=== PATIENT | male | born 1995 | race Caucasian/White ===

== ENCOUNTER 2017-01-04 17:35 | Inpatient (IN) | payer BC ==
[~2017-01-04] VITALS: Ht 182.9 cm; Wt 68.7 kg
[2017-01-04 17:42] VITALS: BP 101/72
[2017-01-04 18:09] LABS: BASO # 0.1 10*3/uL (0.0-0.1); BASO % 0.4 % (0.0-1.0); EOS # 0.3 10*3/uL (0.0-0.4); EOS % 1.7 % (1.0-4.0); HEMATOCRIT 50.2 % (42.0-52.0); HEMOGLOBIN 16.8 g/dl (14.0-18.0); LYMPH # 1.2 10*3/uL (1.3-4.4); LYMPH % 7.1 % (27.0-41.0); MEAN CELL VOLUME 82.4 fl (80.0-94.0); MEAN CORPUSCULAR HGB 27.6 pg (27.0-31.0); MEAN CORPUSCULAR HGB CONC 33.5 g/dl (33.0-37.0); MEAN PLATELET VOLUME 9.6 fl (9.6-12.3); MONO # 1.1 10*3/uL (0.1-1.0); MONO % 6.6 % (3.0-9.0); NEUT # 14.5 10*3/uL (2.3-7.9); NEUT % 83.9 % (47.0-73.0); PLATELET COUNT AUTOMATED 443 10*3/uL (130-400); RED BLOOD COUNT 6.09 10*6/uL (4.50-5.90); RED CELL DISTRI WIDTH 13.2 % (0-14.5); WHITE BLOOD COUNT 17.2 10*3/uL (4.8-10.8)
[2017-01-04 18:24] LABS: ALBUMIN 4.1 gm/dl (3.1-4.5); ALKALINE PHOSPHATASE 99 U/L (45-117); BUN 12 mg/dl (7-24); CHLORIDE 100 mmol/L (98-107); CREATININE 0.94 mg/dL (0.70-1.30); LIPASE 107 U/L (73-393); POTASSIUM 3.9 mmol/L (3.5-5.1); SGOT/AST 22 IU/L (3-35); SGPT/ALT 21 U/L (12-78); SODIUM 137 mmol/L (136-145); TOTAL PROTEIN 8.5 gm/dL (6.4-8.2)
[2017-01-04 18:24] LABS: BILIRUBIN 1+ (NEGATIVE); BLOOD NEGATIVE (NEGATIVE); CLARITY SL CLOUDY (CLEAR); COLOR YELLOW (YELLOW); GLUCOSE NEGATIVE (NEGATIVE); KETONE 1+ (NEGATIVE); LEUKO ESTERASE NEGATIVE (NEGATIVE); NITRITE NEGATIVE (NEGATIVE); SPECIFIC GRAVITY >= 1.030 (1.005-1.030); UROBILINOGEN 0.2 E.U./dl (0.2-1.0)
[2017-01-04 18:30] LABS: BACTERIA TRACE; MUCOUS 2+; RBC 0-2 rbc/hpf (0-2)
--- NOTE | 2017-01-04 18:41 | NUR ---
NAUSEA HAS SUBSIDED.
--- NOTE | 2017-01-04 19:31 | NUR ---
REPORT GIVEN TO THIAGO KEMP, PT MOVED TO ROOM 2004.
--- NOTE | 2017-01-04 20:00 | NUR ---
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
--- NOTE | 2017-01-04 20:07 | NUR ---
NG TUBE INSERTED TO RIGHT NARE. PT TOLERATED "OK" 300 ML GREEN/YELLOW IN COLOR PT GIVEN PHENERGAN IM AFTERWARDS... SEE EMAR. SIG OTHER AT BEDSIDE. PLACEMENT CONFIRMED WITH AIR BOLUS AND AUSCULTATION. AFTER [address] PT ASKS FOR NG TO BE REMOVED. THIS WAS DONE REQUESTED AND PT TOLERATED WELL. 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
--- NOTE | 2017-01-04 20:14 | NUR ---
CALL PLACED TO DR. MACHUCA FOR CONSULT R/T SMALL BOWEL OBSTRUCTION/ CHRONS
[2017-01-04 20:35] VITALS: BP 106/74
--- NOTE | 2017-01-04 20:37 | NUR ---
PT VERBALIZES UNDERSTANDING OF NPO STATUS. FIANCE AT BEDSIDE AND UNDERSTANDS AT WELL
--- NOTE | 2017-01-04 20:39 | NUR ---
REPORT GIVEN. PT STABLE AND READY FOR TRANSPORT TO INPATIENT ROOM 519.
[2017-01-04 20:50] VITALS: BP 136/59
--- NOTE | 2017-01-04 20:50 | NUR ---
PT WAS OFFERED FLU SHOT AND PT REFUSED AT THIS TIME, STATING THAT HE DOES NOT GET THE FLU AND PNEUMONIA SHOT
--- NOTE | 2017-01-04 20:52 | NUR ---
A 21, admitted to 5E, under the services of JACQUELYN Otoole DO with a diagnosis of ACUTE CROHNS WITH INTESTIONAL OBSTRUCTION. Chief complaint is ABDOMINAL PAIN. Patient arrived via ambulatory from ER. Monitor applied. Initial assessment completed. Vital signs taken and recorded. JACQUELYN OTOOLE DO notified of admission to the unit. Orders received. See assessment for past medical history, medications and allergies. Patient and/or family oriented to unit. visitation policy reviewed. Clothing/patient valuable form completed. MARIMAR IVY
--- NOTE | 2017-01-04 21:42 | NUR ---
PT C/O ABDOMINAL PAIN AND REQUESTING PRN PAIN MEDICATION, CALL PLACED TO , PT ORDERED 1 X DOSE OF DILAUDID AT THIS TIME, UPON ADMINISTRATION OF MEDICATION, NOTED THAT IV SITE WAS LEAKING, IV SITE REPLACED TO LEFT ARM, ATTEMPTED X1, POSITIVE BLOOD RETURN, FLUSHES WITH NO DIFFIUCLTY AT THIS TIME, MEDICATION ADMINISTERED, AND IV FLUIDS RESTARTED ORDERED
--- NOTE | 2017-01-04 22:42 | NUR ---
PT RESTING IN BED WITH EYES CLOSED AT THIS TIME, FAMILY AT BEDSIDE, PRN PAIN MEDICATION EFFECTIVE.
[2017-01-05] VITALS: BP 115/67
[2017-01-05] MEDS ORDERED: MESALAMINE1.2 GM PO (00:52)
--- NOTE | 2017-01-05 05:24 | NUR ---
PT C/O ABDOMINAL PAIN AND REQUESTING PRN PAIN MEDICATION ADMINISTERED DILAUDID IVP PRN PER ORDERS, WILL MONITOR EFFECTS
[2017-01-05 06:58] LABS: BASO % 0.3 % (0.0-1.0); EOS # 0.2 10*3/uL (0.0-0.4); HEMATOCRIT 37.6 % (42.0-52.0); HEMOGLOBIN 12.3 g/dl (14.0-18.0); LYMPH # 1.2 10*3/uL (1.3-4.4); LYMPH % 16.3 % (27.0-41.0); MEAN CELL VOLUME 84.7 fl (80.0-94.0); MEAN CORPUSCULAR HGB 27.7 pg (27.0-31.0); MEAN CORPUSCULAR HGB CONC 32.7 g/dl (33.0-37.0); MEAN PLATELET VOLUME 9.8 fl (9.6-12.3); MONO # 0.8 10*3/uL (0.1-1.0); NEUT # 4.9 10*3/uL (2.3-7.9); NEUT % 69.1 % (47.0-73.0); PLATELET COUNT AUTOMATED 255 10*3/uL (130-400); RED BLOOD COUNT 4.44 10*6/uL (4.50-5.90); RED CELL DISTRI WIDTH 13.2 % (0-14.5); WHITE BLOOD COUNT 7.1 10*3/uL (4.8-10.8)
[2017-01-05 07:18] LABS: CHLORIDE 107 mmol/L (98-107); CHOLESTEROL 62 mg/dL (<200); CREATININE 0.76 mg/dL (0.70-1.30); PHOSPHOROUS 2.5 mg/dL (2.5-4.9); POTASSIUM 3.8 mmol/L (3.5-5.1); SGOT/AST 33 IU/L (3-35); SGPT/ALT 19 U/L (12-78); SODIUM 141 mmol/L (136-145); TOTAL PROTEIN 5.6 gm/dL (6.4-8.2)
[2017-01-05 07:24] LABS: ALBUMIN 2.7 gm/dl (3.1-4.5); ALKALINE PHOSPHATASE 62 U/L (45-117); BUN 15 mg/dl (7-24); HDL CHOLESTEROL 50 mg/dl (40-60); LDL CHOLESTEROL 1 mg/dL (9-159); THYROID STIM HORMONE (HS) 0.803 uIU/ml (0.358-4.75); TRIGLYCERIDES 56 mg/dl (<150); VLDL CHOLESTEROL 11 mg/dL (6-40)
[2017-01-05 07:40] LABS: VITAMIN D, 25-HYDROXY 27.7 ng/mL (30-100)
[2017-01-05 08:00] VITALS: BP 117/65
--- NOTE | 2017-01-05 10:03 | NUR ---
DILAUDID 1 MG GIVEN FOR C/O ABD PAIN,09/26.
[2017-01-05 12:00] VITALS: BP 118/62
--- NOTE | 2017-01-05 12:40 | NUR ---
DR MACHUCA ROUNDED AND SEEN PT. ORDERS RECIEVED.
[2017-01-05 16:00] VITALS: BP 128/76
--- NOTE | 2017-01-05 19:43 | NUR ---
MEDICATED WITH DILAUDID FOR C/O LOWER ABDOMINAL PAIN RATED AN 8/10.
[2017-01-05 20:00] VITALS: BP 128/66
--- NOTE | 2017-01-05 21:00 | NUR ---
STATES DILAUDID EFFECTIVE.
--- NOTE | 2017-01-05 21:49 | NUR ---
MEDICATED WITH ZOFRAN FOR C/O NAUSEA.
--- NOTE | 2017-01-05 22:30 | NUR ---
STATES ZOFRAN EFFECTIVE.
[2017-01-06] VITALS: BP 117/50
--- NOTE | 2017-01-06 00:28 | NUR ---
MEDICATED WITH DILAUDID FOR C/O ABDOMINAL DISCOMFORT RATED A 5/10.
--- NOTE | 2017-01-06 02:00 | NUR ---
RESTING IN BED WITH EYES CLOSED; DILAUDID EFFECTIVE.
[2017-01-06 08:00] VITALS: BP 102/50
--- NOTE | 2017-01-06 09:00 | NUR ---
Neck Skewer in to talk to patient. Patient states lives at home with family. There are few steps in the home. Physician: Pharmacy: [facility] Home health services: none Patient's level of ADLs: INDEPENDENT Patient has working utilities: all working DME: none Follow-up physician's appointment after d/c: will be made by hospitalist nurse director upon discharge Does patient want to access PORTAL?: no Discharge plan discussed with patient, patient is independent in adls and ambulaiton, patient denies any home needs. ED MAL[facility]O
[2017-01-06 12:00] VITALS: BP 110/58
[2017-01-06 16:00] VITALS: BP 125/67
[2017-01-06] MEDS ORDERED: Vitamin D PO (16:41)
--- NOTE | 2017-01-06 19:34 | NUR ---
PT BACK FROM RADIOLOGY AND UPPER GI SERIES.SPOKE TO DR CARD,ORDERS RECIEVED.REPORT CALLED BY JOE. NOTIFIED DR ORR.
[2017-01-06 20:00] VITALS: BP 125/67
[2017-01-07] VITALS: BP 128/75
[2017-01-07 04:00] VITALS: BP 126/74
--- NOTE | 2017-01-07 06:10 | NUR ---
PATIENT RESTING IN BED CALL LIGHT IN REACH PAIN MEDICATION GIVEN WILL REASSESS FOR EFFECTIVENESS SEE SHIFT ASSESSMENT
[2017-01-07 08:00] VITALS: BP 136/66
--- NOTE | 2017-01-07 09:01 | NUR ---
MEDICATED WITH PRN IV DILAUDID FOR RLQ ABDOMINAL PAIN.
--- NOTE | 2017-01-07 09:46 | NUR ---
PRN IV DILAUDID EFFECTIVE, PER PATIENT.
[2017-01-07] MEDS ORDERED: PREDNISONE50 MG PO (11:31)
[2017-01-07] MEDS ORDERED: MESALAMINE1.2 GM PO (11:32)
[2017-01-07] MEDS ORDERED: NORCO 5-325 TA1 EACH PO (11:36)
--- NOTE | 2017-01-07 12:10 | NUR ---
Discharge instructions reviewed with patient/family. Patient receptive and verbalizes understanding. Follow-up care arranged. Written instructions given to patient/family. DESTINEY ADAMS
--- NOTE | 2017-01-07 12:21 | NUR ---
PATIENT DISCHARGED TO [facility], AMBULATORY, FOR TRANSPORT HOME BY PRIVATE VEHICLE WITH GIRLFRIEND.
[2017-01-07 15:07] LABS: ATYPICAL PANCA <1:20 titer (Neg:<1:20); CYTOPLASMIC (C-ANCA) <1:20 titer (Neg:<1:20); PERINUCLEAR (P-ANCA) <1:20 titer (Neg:<1:20)
== END 2017-01-07 12:20 | disposition home or self-care (01) | DRG 386 ==
LOC: ED 17:35 → 5E 19:50 → EDHOLD 19:50 → 5E 20:06
PROVIDERS: Hospitalist; Nurse Practitioner Family; ADMIT Internal Medicine
DX: K50.812 Crohn's disease of both small and large intestine with intestinal obstruction (principal); R65.10 Systemic inflammatory response syndrome (SIRS) of non-infectious origin without acute organ dysfunction; E55.9 Vitamin D deficiency, unspecified; D64.9 Anemia, unspecified; Z79.899 Other long term (current) drug therapy; Z78.9 Other specified health status

== ENCOUNTER 2017-01-15 20:20 | Inpatient (IN) | payer BC ==
[~2017-01-15] VITALS: Ht 182.8 cm; Wt 67.4 kg
[~2017-01-15 20:20] MED LIST: MESALAMINE1.2 GM PO; NORCO 5-325 TA1 EACH PO; PREDNISONE50 MG PO; Vitamin D PO
[2017-01-15 20:35] VITALS: BP 120/84
[2017-01-15 20:55] LABS: BASO # 0.1 10*3/uL (0.0-0.1); BASO % 0.3 % (0.0-1.0); EOS # 0.2 10*3/uL (0.0-0.4); EOS % 1.4 % (1.0-4.0); HEMATOCRIT 47.9 % (42.0-52.0); HEMOGLOBIN 15.9 g/dl (14.0-18.0); LYMPH # 2.3 10*3/uL (1.3-4.4); LYMPH % 12.9 % (27.0-41.0); MEAN CELL VOLUME 83.4 fl (80.0-94.0); MEAN CORPUSCULAR HGB 27.7 pg (27.0-31.0); MEAN CORPUSCULAR HGB CONC 33.2 g/dl (33.0-37.0); MEAN PLATELET VOLUME 9.1 fl (9.6-12.3); MONO # 1.2 10*3/uL (0.1-1.0); MONO % 6.9 % (3.0-9.0); NEUT # 13.9 10*3/uL (2.3-7.9); NEUT % 78.2 % (47.0-73.0); PLATELET COUNT AUTOMATED 414 10*3/uL (130-400); RED BLOOD COUNT 5.74 10*6/uL (4.50-5.90); RED CELL DISTRI WIDTH 12.9 % (0-14.5); WHITE BLOOD COUNT 17.7 10*3/uL (4.8-10.8)
[2017-01-15 21:10] LABS: ALKALINE PHOSPHATASE 71 U/L (45-117); BUN 13 mg/dl (7-24); CHLORIDE 100 mmol/L (98-107); CREATININE 0.98 mg/dL (0.70-1.30); LIPASE 137 U/L (73-393); POTASSIUM 3.9 mmol/L (3.5-5.1); SGOT/AST 16 IU/L (3-35); SGPT/ALT 30 U/L (12-78); SODIUM 138 mmol/L (136-145); TOTAL PROTEIN 7.6 gm/dL (6.4-8.2)
--- NOTE | 2017-01-15 21:18 | NUR ---
PT MEDICATED FOR PAIN PER DOCTORS ORDERS. PRIOR TO MEDICATION ADMINISTRATION PT RATES PAIN 10/10. SPO2 APPLIED, 98%RA. PT RESTING IN BED.
--- NOTE | 2017-01-15 21:35 | NUR ---
PT STATES THAT THE MEDICATION FOR PAIN DID NOT PROVIDE HIM WITH MUCH PAIN RELIEF. PT STATES HIS PAIN IS NOW AT A 7/10. DOCTOR NOTIFIED. NO NEW ORDERS AT THIS TIME. WILL CONTINUE TO MONITOR.
[2017-01-16 01:15] VITALS: BP 134/84
--- NOTE | 2017-01-16 01:15 | NUR ---
Time: 114. A 21 year old M admitted to 5E under services of MYLES JIMENEZ DO. Pt. arrived via stretcher from ER. Chief complaint: NAUSEA/VOMITING. VINCE TOVAR
[2017-01-16 06:33] LABS: MEAN CELL VOLUME 86.1 fl (80.0-94.0); MEAN CORPUSCULAR HGB 27.9 pg (27.0-31.0); MEAN CORPUSCULAR HGB CONC 32.4 g/dl (33.0-37.0); MEAN PLATELET VOLUME 9.7 fl (9.6-12.3); PLATELET COUNT AUTOMATED 291 10*3/uL (130-400); RED BLOOD COUNT 4.76 10*6/uL (4.50-5.90); WHITE BLOOD COUNT 14.4 10*3/uL (4.8-10.8)
[2017-01-16 06:36] LABS: HEMOGLOBIN 13.3 g/dl (14.0-18.0)
[2017-01-16 06:37] LABS: ALKALINE PHOSPHATASE 56 U/L (45-117); BUN 16 mg/dl (7-24); CHLORIDE 106 mmol/L (98-107); CREATININE 0.75 mg/dL (0.70-1.30); FREE T4 1.32 ng/dl (0.76-1.46); PHOSPHOROUS 3.3 mg/dL (2.5-4.9); POTASSIUM 3.8 mmol/L (3.5-5.1); SGOT/AST 11 IU/L (3-35); SGPT/ALT 22 U/L (12-78); SODIUM 142 mmol/L (136-145); TOTAL PROTEIN 5.9 gm/dL (6.4-8.2)
[2017-01-16 06:53] LABS: ACT PARTIAL THROMBO TIME 25.5 SECONDS (20.8-31.5)
[2017-01-16 07:35] LABS: PLATELET SUFFICIENCY NORMAL (NORMAL); TOTAL CELLS COUNTED 100 #CELLS
[2017-01-16 08:00] VITALS: BP 134/84
[2017-01-16 08:00] LABS: VITAMIN D, 25-HYDROXY 22.9 ng/mL (30-100)
--- NOTE | 2017-01-16 08:30 | NUR ---
Patient Care Assistant in to talk to patient. Patient states lives at HOME ALONE with . There are 0 steps in the home. Physician: NO PCP Pharmacy: [facility] Home health services: NONE Patient's level of ADLs: INDEPENDENT Patient has working utilities: YES DME: NONE Follow-up physician's appointment after d/c: WILL BE MADE PRIOR TO DC Does patient want to access PORTAL?: Discharge plan HOME. KENNEY GOSS
[2017-01-16 11:53] LABS: BILIRUBIN NEGATIVE (NEGATIVE); BLOOD NEGATIVE (NEGATIVE); CLARITY CLOUDY (CLEAR); COLOR YELLOW (YELLOW); GLUCOSE NEGATIVE (NEGATIVE); KETONE NEGATIVE (NEGATIVE); LEUKO ESTERASE NEGATIVE (NEGATIVE); NITRITE NEGATIVE (NEGATIVE); PH 7.5 (5.0-9.0)
[2017-01-16 12:04] LABS: WBC 0-2 wbc/hpf (0-5)
[2017-01-16 16:00] VITALS: BP 127/71
[2017-01-16 20:00] VITALS: BP 131/70
[2017-01-17] VITALS: BP 121/55
--- NOTE | 2017-01-17 06:11 | NUR ---
PRN TORODOL GIVEN FOR PT. C/O ABDOMINAL PAIN WILL MONITOR EFFECT.
[2017-01-17 06:36] LABS: BASO % 0.2 % (0.0-1.0); EOS % 0.1 % (1.0-4.0); HEMATOCRIT 40.3 % (42.0-52.0); HEMOGLOBIN 13.1 g/dl (14.0-18.0); LYMPH # 0.7 10*3/uL (1.3-4.4); LYMPH % 6.9 % (27.0-41.0); MEAN CELL VOLUME 86.7 fl (80.0-94.0); MEAN CORPUSCULAR HGB 28.2 pg (27.0-31.0); MEAN CORPUSCULAR HGB CONC 32.5 g/dl (33.0-37.0); MEAN PLATELET VOLUME 9.8 fl (9.6-12.3); MONO # 0.3 10*3/uL (0.1-1.0); NEUT # 8.8 10*3/uL (2.3-7.9); NEUT % 89.5 % (47.0-73.0); PLATELET COUNT AUTOMATED 288 10*3/uL (130-400); RED BLOOD COUNT 4.65 10*6/uL (4.50-5.90); RED CELL DISTRI WIDTH 12.6 % (0-14.5); WHITE BLOOD COUNT 9.8 10*3/uL (4.8-10.8)
--- NOTE | 2017-01-17 06:53 | NUR ---
TORODOL SEEMS TO BE EFFECTIVE, PT IS SLEEPING COMFORTABLY WITH CALL LIGHT IN REACH.
[2017-01-17 07:01] LABS: BUN 7 mg/dl (7-24); CHLORIDE 106 mmol/L (98-107); CREATININE 0.67 mg/dL (0.70-1.30); SODIUM 140 mmol/L (136-145)
[2017-01-17 08:00] VITALS: BP 103/68
--- NOTE | 2017-01-17 11:22 | NUR ---
SPOKE TO DR MACHUCA REGARDING PT WANTING TO GO HOME. PT IS HAVING NORMAL BOWEL MOVEMENTS.DENIES PAIN.DR MACHUCA WAS OK FOR D/C WITH RX FOR PREDNISONE 20 MG BID ,QUANTITY OF 30 WITH 1 REFILL.MESALAMINE 800MG BID,QUANTITY OF 30 WITH 1 REFILL. PT IS TO FOLLOW UP WITH DR MACHUCA AND CALL Friday01/20/17 FOR APPT. ALL FURTHER TESTING HAS TO BE DONE OUTPATIENT D/T INSURANCE COVERAGE.
[2017-01-17] MEDS ORDERED: PREDNISONE20 M1 PO (11:30)
[2017-01-17 12:00] VITALS: BP 135/61
--- NOTE | 2017-01-17 12:23 | NUR ---
Discharge instructions reviewed with patient/family. Patient receptive and verbalizes understanding. Follow-up care arranged. Written instructions given to patient/family. AMBAR TIMMONS
== END 2017-01-17 12:23 | disposition home or self-care (01) | DRG 386 ==
LOC: ED 20:20 → EDHOLD 23:47 → 5E 23:47
PROVIDERS: Internal Medicine; Physician Assistant; ADMIT Emergency Medicine
DX: K50.012 Crohn's disease of small intestine with intestinal obstruction (principal); E44.0 Moderate protein-calorie malnutrition; R65.10 Systemic inflammatory response syndrome (SIRS) of non-infectious origin without acute organ dysfunction; R73.9 Hyperglycemia, unspecified; E80.6 Other disorders of bilirubin metabolism; D47.3 Essential (hemorrhagic) thrombocythemia; E55.9 Vitamin D deficiency, unspecified; E53.8 Deficiency of other specified B group vitamins; Z68.20 Body mass index [BMI] 20.0-20.9, adult

== ENCOUNTER → 2017-01-20 | Outpatient (CLI) | payer BC ==
[~2017-01-20] MED LIST changes: +PREDNISONE20 M1 PO
[2017-01-22 16:10] LABS: ATYPICAL PANCA Negative (Negative)
== END | disposition home or self-care (01) ==
LOC: LAB 12:28
DX: R10.31 Right lower quadrant pain (principal)

== ENCOUNTER → 2017-01-23 | Day surgery (SDC) | payer BC ==
[~2017-01-23] VITALS: Ht 182.8 cm; Wt 70.3 kg
[2017-01-23 07:10] VITALS: BP 113/74
[2017-01-23 08:25] VITALS: BP 102/52
[2017-01-23 08:40] VITALS: BP 100/57
[2017-01-23 08:55] VITALS: BP 100/80
[2017-01-23 09:10] VITALS: BP 105/67
== END | disposition home or self-care (01) ==
LOC: SDC 01-21 08:45
DX: K63.89 Other specified diseases of intestine (principal); F17.210 Nicotine dependence, cigarettes, uncomplicated; K50.90 Crohn's disease, unspecified, without complications